=== PATIENT | male | born 1995 | race Caucasian/White ===

== ENCOUNTER 2021-02-16 16:24 | Emergency (ER) | payer OTHER ==
[~2021-02-16 16:24] MED LIST: PREDNISONE20 MG PO; ROBITUSSIN AC480 ML PO; VIBRAMYCIN100 MG PO
== END 2021-02-16 19:30 | disposition home or self-care (01) ==
LOC: ER1 16:24
DX: F41.1 Generalized anxiety disorder (principal); R07.89 Other chest pain
CPT/HCPCS: 71045; 93005; 99285

== ENCOUNTER 2021-06-28 00:07 | Emergency (ER) | payer OTHER ==
[2021-06-28] MEDS ORDERED: NORFLEX 100 MG100 MG PO (04:12)
[2021-06-28] MEDS ORDERED: LODINE CAP 300300 MG PO (04:12)
== END 2021-06-28 05:24 | disposition home or self-care (01) ==
LOC: ER1 00:07
DX: M54.50 Low back pain, unspecified (principal); M54.6 Pain in thoracic spine; F17.210 Nicotine dependence, cigarettes, uncomplicated; W19.XXXA Unspecified fall, initial encounter
CPT/HCPCS: 72125; 72128; 72131; 96372; 99284; J1885

== ENCOUNTER 2022-04-13 10:48 | Emergency (ER) | payer OTHER ==
[~2022-04-13 10:48] MED LIST changes: +LODINE CAP 300300 MG PO; +NORFLEX 100 MG100 MG PO
[2022-04-13] MEDS ORDERED: CEPHALEXIN500 M1 PO (11:57)
[2022-04-13] MEDS ORDERED: IBUPROFEN600 MG PO (11:57)
== END 2022-04-13 12:04 | disposition home or self-care (01) ==
LOC: ER1 10:48
DX: S01.81XA Laceration without foreign body of other part of head, initial encounter (principal); F17.210 Nicotine dependence, cigarettes, uncomplicated; R40.2410 Glasgow coma scale score 13-15, unspecified time; W22.8XXA Striking against or struck by other objects, initial encounter
CPT/HCPCS: 12013; 99282; C9113; J2405